=== PATIENT | female | born 1940 | race Caucasian/White ===

== ENCOUNTER 2018-12-28 19:32 | Emergency (ER) | payer MEDICARE ==
[~2018-12-28] VITALS: Ht 152.4 cm; Wt 52.0 kg
[2018-12-28 19:34] VITALS: BP 118/51
== END 2018-12-28 21:18 | disposition home or self-care (01) ==
LOC: ED 20:30
DX: S83.411A Sprain of medial collateral ligament of right knee, initial encounter (principal); S83.421A Sprain of lateral collateral ligament of right knee, initial encounter; S83.001A Unspecified subluxation of right patella, initial encounter; S80.01XA Contusion of right knee, initial encounter; M25.461 Effusion, right knee; W01.0XXA Fall on same level from slipping, tripping and stumbling without subsequent striking against object, initial encounter; Y93.89 Activity, other specified; Y92.410 Unspecified street and highway as the place of occurrence of the external cause; Y99.8 Other external cause status
CPT/HCPCS: 29505; 99283